=== PATIENT | female | born 1975 | race Caucasian/White ===

== ENCOUNTER 2024-07-01 17:32 | Emergency (ER) | payer BC ==
[~2024-07-01] VITALS: Ht 162.6 cm; Wt 70.7 kg
[2024-07-01 19:19] LABS: BASOPHILS # (AUTO) 0.1 X10'3 (0-0.2); BASOPHILS % (AUTO) 0.6 % (0-1); EOSINOPHILS # (AUTO) 0.1 X10'3 (0-0.9); EOSINOPHILS % (AUTO) 0.7 % (0-6); HEMOGLOBIN 14.7 g/dl (12.0-16.0); LYMPHOCYTES # (AUTO) 1.7 X10'3 (1.1-4.8); LYMPHOCYTES % (AUTO) 13.3 % (21-51); MEAN CORPUSCULAR HEMOGLOBIN 30.8 PG (27.0-31.0); MEAN CORPUSCULAR HGB CONC 34.3 g/dL (33.0-36.5); MEAN CORPUSCULAR VOLUME 89.7 FL (78-98); MEAN PLATELET VOLUME 7.1 FL (7.4-10.4); MONOCYTES # (AUTO) 0.7 X10'3 (0-0.9); MONOCYTES % (AUTO) 5.4 % (2-12); NEUTROPHILS # (AUTO) 10.1 X10'3 (1.8-7.7); PLATELET COUNT 254 X10'3 (140-440); RED BLOOD COUNT 4.79 X10'6 (4.20-5.60); RED CELL DISTRIBUTION WIDTH 12.6 % (11.5-14.5); WHITE BLOOD COUNT 12.6 X10'3 (4.5-11.0)
[2024-07-01 19:34] LABS: ALANINE AMINOTRANSFERASE 25 U/L (12-78); ALBUMIN/GLOBULIN RATIO 1.1 (1.1-1.5); ALKALINE PHOSPHATASE 75 IU/L (46-116); ANION GAP 8 (8-16); ASPARTATE AMINO TRANSFERASE 16 U/L (10-37); BILIRUBIN,TOTAL 0.5 MG/DL (0.1-1.0); BLOOD UREA NITROGEN 9 MG/DL (7-18); BUN/CREATININE RATIO 11.8 (10.0-20.0); CALCIUM 9.4 MG/DL (8.5-10.1); CHLORIDE 104 MMOL/L (99-107); CREATININE 0.76 MG/DL (0.40-0.90); GLUCOSE 97 MG/DL (70-104); LIPASE 46 U/L (16-77); POTASSIUM 4.6 MMOL/L (3.5-5.1); SODIUM 139 MMOL/L (135-145); TOTAL CARBON DIOXIDE 26.9 MMOL/L (24-32); TOTAL PROTEIN 7.8 G/DL (6.4-8.2); eCRCL 76 ML/MIN; eGFR 81 ML/MIN
[2024-07-01] MEDS ORDERED: iohexol 300mg/ml 100ml inj. ONE (23:57)
[2024-07-02] MEDS: ondansetron 4mg rapidly disintigrating tab PO ONE (00:53)
[2024-07-02] MEDS: HYDROcodone/acetaminophen 5mg/325mg tablet PO ONE (00:54)
[2024-07-02] MEDS ORDERED: AMOX-115 PO (01:05)
[2024-07-02] MEDS ORDERED: ONDA-245 PO (01:05)
[2024-07-02] MEDS: amox tr/potassium clavulanate 875/125mg TAB PO ONE (01:08)
[2024-07-02 01:10] VITALS: BP 112/73; PULSE 101; RESP 14; TEMP 98.6; O2SAT 99
== END 2024-07-02 01:11 | disposition home or self-care (01) ==
LOC: ER 17:32
DX: K52.9 Noninfective gastroenteritis and colitis, unspecified (principal); Z88.2 Allergy status to sulfonamides
CPT/HCPCS: 36415; 74177; 80053; 83690; 85025; 99285; Q9967; 99284